=== PATIENT | male | born 1995 | race African-American/Black ===

== ENCOUNTER 2016-07-25 20:31 | Emergency (ER) | payer MEDICAID ==
[~2016-07-25] VITALS: Ht 185.4 cm; Wt 69.9 kg
[2016-07-25 20:57] VITALS: BP 139/96
[2016-07-26] MEDS ORDERED: methylPREDNISolone SOD SUCC 125 MG/2 ML VL IM ONE (00:15)
[2016-07-26] MEDS ORDERED: PENICILLIN G BENZ 1200000 UNITS/2 ML SYRG IM ONE (00:15)
== END 2016-07-26 01:35 | disposition home or self-care (01) ==
LOC: ER 20:35
DX: N50.819 Testicular pain, unspecified (principal); J02.0 Streptococcal pharyngitis; F17.210 Nicotine dependence, cigarettes, uncomplicated; F12.10 Cannabis abuse, uncomplicated
CPT/HCPCS: 76870; 86703; 96372; 99285; J0561; J2930